=== PATIENT | female | born 1980 ===

== ENCOUNTER 2021-09-06 12:39 | Emergency (ER) | payer MEDICAID ==
[2021-09-06 14:19] VITALS: BP 102/63
[2021-09-06 15:17] LABS: Bilirubin,Urine NEG (Negative); Blood,Urine NEG (Negative); Color,Urine Yellow (Yellow); Mucus,Urine FEW /HPF; Protein,Urine <15 mg/dL mg/dL (Negative); Urobilinogen,Urine < 2.0 mg/dL (<2.0)
[2021-09-06] MEDS ORDERED: ACETAMINOPHEN 325 MG TAB PO ONE (16:23)
[2021-09-06] MEDS ORDERED: KETOROLAC 60 MG/2 ML INJ IM ONE (16:23)
--- NOTE | 2021-09-06 16:27 | Emergency Department Report ---
ED Back Pain/Injury HPI - General Chief Complaint: Back Pain/Injury Stated Complaint: BACK PAIN Time Seen by Provider: 09/06/21 16:15 Source: patient Limitations: No Limitations - History of Present Illness Initial Comments: 41-year-old female presents to the ER today with complaints of right lower back pain. Patient states that she woke up with the pain yesterday morning. She denies any injury or strenuous activity. She states that the pain has been constant, and preventing her from sleeping at night. She did take 800 mg ibuprofen without much relief. She states that the pain is nonradiating. Pain is worse when she bends forward. She denies any associated nausea, vomiting or abdominal pain. Her last menstrual cycle was between August 09-. She is status post tubal ligation. She states that she is never had any injury or issues with her back in the past. MD Complaint: back pain -: days(s) (1) - Related Data Allergies Allergy/AdvReac Type Severity Reaction Status Date / Time acetaminophen [From Percocet] Allergy Hives Verified 09/06/21 14:14 oxycodone [From Percocet] Allergy Hives Verified 09/06/21 14:14 ED Review of Systems ROS: Stated complaint: BACK PAIN Other details as noted in HPI Comment: All other systems reviewed and negative Constitutional: denies: chills, fever Eyes: denies: eye pain, eye discharge, vision change ENT: denies: ear pain, throat pain Respiratory: denies: cough, shortness of breath, wheezing Cardiovascular: denies: chest pain, palpitations Gastrointestinal: denies: abdominal pain, nausea, diarrhea Genitourinary: denies: urgency, dysuria, frequency, hematuria, discharge, abnorm al menses, dyspareunia Musculoskeletal: back pain. denies: joint swelling, arthralgia, myalgia Skin: denies: rash, lesions Neurological: denies: headache, weakness, numbness, paresthesias, confusion, abnormal gait, vertigo Psychiatric: denies: anxiety, depression, auditory hallucinations, visual suarez llucinations, homicidal thoughts, suicidal thoughts ED Past Medical Hx - Past Medical History Previous Medical History?: No - Surgical History Past Surgical History?: No ED Physical Exam - General Limitations: No Limitations General appearance: alert, in no apparent distress - Head Head exam: Present: atraumatic, normocephalic, normal inspection - Eye Eye exam: Present: normal appearance, PERRL, EOMI Pupils: Present: normal accommodation - Neck Neck exam: Present: normal inspection, full ROM. Absent: meningismus - Respiratory Respiratory exam: Present: normal lung sounds bilaterally. Absent: respiratory distress, wheezes, rales, rhonchi - Cardiovascular Cardiovascular Exam: Present: regular rate, normal rhythm, normal heart sounds - GI/Abdominal GI/Abdominal exam: Present: soft. Absent: distended, tenderness, guarding, rebound - Back Exam Back exam: Present: normal inspection, full ROM (Range of motion is painful but otherwise normal), tenderness (Mild tenderness to palpation to the right paraspinal muscle with some spasms noted), muscle spasm, paraspinal tenderness. Absent: vertebral tenderness - Neurological Exam Neurological exam: Present: alert, oriented X3, CN II-XII intact, normal gait - Psychiatric Psychiatric exam: Present: normal affect, normal mood - Skin Skin exam: Present: intact ED Course Vital Signs 09/06/21 09/06/21 14:18 14:19 Temperature 98 F Pulse Rate 74 Respiratory 20 18 Rate Blood Pressure 102/63 O2 Sat by Pulse 100 Oximetry ED Medical Decision Making - Medical Decision Making 1735: Urinalysis reviewed and negative for UTI. hCG is pending. 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 Patient left without me being notified and without being able to discussed AMA with her. Critical care attestation.: If time is entered above; I have spent that time in minutes in the direct care of this critically ill patient, excluding procedure time. ED Disposition Clinical Impression: Lumbar paraspinal muscle spasm Disposition: 07 LEFT AWOL/ELOPED Is pt being admited?: No Condition: Stable
[2021-09-06 17:38] LABS: HCG Qualitative,Urine Negative (Negative)
== END 2021-09-06 17:45 | disposition left against medical advice (07) ==
LOC: ED 12:39
DX: M62.830 Muscle spasm of back (principal)
CPT/HCPCS: 81001; 81025; 96372; 99283; J1885

== ENCOUNTER 2021-12-23 11:41 | Emergency (ER) | payer MEDICAID ==
[2021-12-23 12:36] LABS: Basophils % (Auto) 0.6 % (0.0-1.8); Eosinophils % (Auto) 1.2 % (0.0-4.3); Hematocrit 36.9 % (30.3-42.9); Hemoglobin 12.3 gm/dl (10.1-14.3); Lymphocytes % (Auto) 23.6 % (13.4-35.0); Mean Corpuscular HGB Conc 33 % (30-34); Mean Corpuscular Volume 83 fl (79-97); Monocytes # (Auto) 0.4 K/mm3 (0.0-0.8); Monocytes % (Auto) 9.9 % (0.0-7.3); Platelet Count 264 K/mm3 (140-440); Red Blood Count 4.44 M/mm3 (3.65-5.03); Red Cell Distribution Width 14.3 % (13.2-15.2)
[2021-12-23 13:04] VITALS: BP 122/71
[2021-12-23 13:09] LABS: Alanine Aminotransferase 8 units/L (7-56); Albumin 4.4 g/dL (3.9-5); BUN/Creatinine Ratio 13; Blood Urea Nitrogen 12 mg/dL (7-17); Calcium 9.3 mg/dL (8.4-10.2); Hemolysis Index 6
--- NOTE | 2021-12-23 13:33 | XRay Report ---
Left shoulder-3 views INDICATION: left shoulder pain. COMPARISON: None available. IMPRESSION: No acute osseous abnormality. Normal alignment. No significant DJD. Soft tissues are u nremarkable. Signer Name: Blayne Nava MD Signed: 12/23/2021 1:29 PM Workstation Name: [id number]
[2021-12-23] MEDS ORDERED: KETOROLAC 30 MG/1 ML INJ IM ONE (13:58)
[2021-12-23] MEDS ORDERED: dexAMETHasone 20 MG/5 ML VIAL IM ONE (13:58)
--- NOTE | 2021-12-23 14:05 | Emergency Department Report ---
Upper Extremity - HPI Chief Complaint: Shoulder Injury Stated Complaint: SHOULDER PAIN/CANT MOVE Upper Extremity: Left Shoulder Occurred When: Today Severity: moderate Symptoms: Yes Pain with Movement, No Deformity, No Limited Range of Movement, No Numbness, No Weakness, No Swelling, No Bruising/Ecchymosis, No Laceration or Abrasion Other History: 41-year-old female presents to the ED after waking this a.m. with left shoulder pain. Patient states that she on her left shoulder. She is able to move her left shoulder states it is painful. She describe pain has stiffness in her left shoulder. No obvious deformity noted. No edema noted. Patient is alert and oriented x3. No acute distress noted. No ill appearance noted. ED Review of Systems ROS: Stated complaint: SHOULDER PAIN/CANT MOVE Other details as noted in HPI Constitutional: denies: chills, fever Eyes: denies: eye pain, eye discharge, vision change ENT: denies: ear pain, throat pain Respiratory: denies: cough, shortness of breath, wheezing Cardiovascular: denies: chest pain, palpitations Endocrine: no symptoms reported Gastrointestinal: denies: abdominal pain, nausea, diarrhea Genitourinary: denies: urgency, dysuria, discharge Musculoskeletal: arthralgia. denies: back pain, joint swelling Skin: denies: rash, lesions Neurological: denies: headache, weakness, paresthesias Psychiatric: denies: anxiety, depression Hematological/Lymphatic: denies: easy bleeding, easy bruising ED Past Medical Hx - Past Medical History Previous Medical History?: No - Surgical History Past Surgical History?: Yes Additional Surgical History: Liposuction - Medications Home Medications: Home Medications Medication Instructions Recorded Confirmed Last Taken Type Cyclobenzaprine [Flexeril] 10 mg PO TID PRN 15 Days #30 tab 12/23/21 Unknown Rx Ketorolac [Toradol] 10 mg PO Q6H PRN 5 Days #20 tab 12/23/21 Unknown Rx predniSONE [Deltasone] 50 mg PO QDAY 5 Days #5 tab 12/23/21 Unknown Rx Upper Extremity Exam - Exam General: Vital signs noted. No distress. Alert and acting appropriately. Head and Torso: No HEENT Abnormality, No Neck Tenderness, No Chest/Lungs A bnormality, No Abdominal Tenderness, No Back Tenderness Shoulder Exam: Yes Shoulder Tenderness, Yes Normal Range of Motion in Shoulder, No Clavicle Tenderness, No Shoulder Deformity, No AC Joint Tenderness Arm Exam: No Arm/Humerus Tenderness, No Arm Deformity Elbow: No Elbow Tenderness, No Normal Range of Motion in Elbow, No Elbow Deformity Forearm: No Forearm Tenderness, No Forearm Deformity, No Pain with Pronation, No Pain with Supination Wrist: Yes Normal ROM in Wrist, No Wrist Tenderness, No Wrist Deformity, No Snuffbox Tenderness, No Pain with Axial Thumb Compression Hand: Yes Normal ROM in Digit(s), No Hand Tenderness, No Hand Deformity, No Digit Tenderness, No Digit(s) Deformity, No Tendon Dysfunction CMS Exam: No Broken Skin, No Normal Distal Pulses, No Normal Capillary Refill, No Normal Distal Sensation ED Course Vital Signs 12/23/21 12:55 Temperature 98.7 F Pulse Rate 90 Respiratory 20 Rate Blood Pressure 122/71 [Right] O2 Sat by Pulse 100 Oximetry ED Medical Decision Making - Lab Data Result diagrams: 12/23/21 12:03 12/23/21 12:03 - Medical Decision Making 41-year-old female presents to the ED after waking this a.m. with left shoulder pain. Patient states that she on her left shoulder. She is able to move her left shoulder states it is painful. She describe pain has stiffness in her left shoulder. No obvious deformity noted. No edema noted. Patient is alert and oriented x3. No acute distress noted. No ill appearance noted. Physical examination is unremarkable patient is able to move shoulder without any difficulty. Rechecked the patient is resting quietly quietly and comfortable and feeling better. I discussed the results of diagnostic study, my clinical impression and the plan for further treatment with the patient. Patient agrees with plan and discharge at this present time. All question addressed. I have given the patient instruction regarding a diagnosis ,expectation ,follow- up and return precaution. I explained to the patient that emergent condition may arise and to return to the ED for new worsen and any new persisting condition. I have explained the importance of following up with the primary care physician or referral physician listed below has instructed. The patient verbalized understanding of discharge instruction. Critical care attestation.: If time is entered above; I have spent that time in minutes in the direct care of this critically ill patient, excluding procedure time. ED Disposition Clinical Impression: Left shoulder pain Qualifiers: Chronicity: acute Qualified Code(s): M25.512 - Pain in left shoulder Disposition: 01 HOME / SELF CARE / HOMELESS Is pt being admited?: No Does the pt Need Aspirin: No Condition: Stable Instructions: Musculoskeletal Pain, How to Use Cold Therapy, Shoulder Pain Additional Instructions: Take medication as prescribed Return to ED for any worsening symptom Prescriptions: predniSONE [Deltasone] 50 mg PO QDAY 5 Days #5 tab Cyclobenzaprine [Flexeril] 10 mg PO TID PRN 15 Days #30 tab PRN Reason: Muscle Spasm Ketorolac [Toradol] 10 mg PO Q6H PRN 5 Days #20 tab PRN Reason: Pain Referrals: [facility] [Provider Group] - 3-5 Days Forms: Work/School Release Form(ED) Time of Disposition: 14:10
== END 2021-12-23 15:00 | disposition home or self-care (01) ==
LOC: ED 11:41
DX: M25.512 Pain in left shoulder (principal)
CPT/HCPCS: 36415; 73030; 80053; 85025; 96372; 99283; J1100; J1885